=== PATIENT | male | born 1985 | race Caucasian/White ===

== ENCOUNTER 2017-02-01 20:34 | Emergency (ER) | payer SELFPAY ==
[~2017-02-01] VITALS: Ht 170.2 cm; Wt 108.6 kg
[2017-02-01] MEDS ORDERED: OXYcodone/APAP 5/325MG TABLET PO ONE (21:30)
[2017-02-01] MEDS ORDERED: KETOROLAC 30 MG/1 ML IM ONE (21:30)
[2017-02-01] MEDS ORDERED: LIDOCAINE 1%, 20ML ONE (21:39)
[2017-02-01] MEDS ORDERED: BACITRACIN ZINC OINT 500U/GM, 0.9 GM ONE (22:48)
[2017-02-01 23:21] VITALS: BP 138/84
== END 2017-02-01 23:24 | disposition home or self-care (01) ==
LOC: ED 23:00
DX: L60.0 Ingrowing nail (principal)
CPT/HCPCS: 11750